=== PATIENT | male | born 2000 | race Caucasian/White ===

== ENCOUNTER 2024-01-11 20:25 | Emergency (ER) | payer BC, SELFPAY ==
[2024-01-11 20:28] VITALS: BP 147/81
--- NOTE | 2024-01-11 21:01 | ED.GENMED ---
History of Present Illness
General
Chief Complaint: Fever
Source: patient
Time Seen by Provider: 01/11/24 20:55
History of Present Illness
History of Present Illness:
23-year-old male with no significant past medical history who reports that on Monday he started to develop a low-grade fever combined with a rash on his left buttock combined with some fatigue. He went to urgent care 2 days ago who put the patient
on oral steroids and some Benadryl and he reports that the rash started to improve and has not had any fever since. Patient reports that he attempted to go back to work however his work told him that he would be unable to come back to work until he
knew exactly what caused his fever which is why he presented to the ER today. Patient has no concerns and states he otherwise feels well and that his rash is improving albeit still present. He denies any pain to the rash, pruritus, tick bites,
history of similar rash.
Past History
Past History
ED Past Medical History: None
ED Past Surgical History: None
Social History
Tobacco: Non-smoker
Alcohol: None
Drug: None
Living: with family
Employment: Employed
Review of Systems
Review of Systems
All Other Systems: ROS reviewed and negative except as documented in HPI and ROS
Phy Exam
Physical Exam
Physical Exam:
GENERAL: Alert , in no apparent distress
EYE: conjunctiva clear
NECK: Supple
ENT: o/p clr, mmm.
CARDIAC: Regular rate and rhythm
LUNGS: Clear breath sounds bilaterally, no acute respiratory distress, no wheezes/rales/rhonchi
Abdomen: Soft, nontender, nondistended
NEUROLOGICAL: Alert and oriented
SKIN: Warm and dry, skin intact. Very light erythematous well-demarcated rash measuring approximately 8 cm in size to the left buttock extending a little bit laterally, blanching, nontender, nonpruritic, nonraised
MUSCULOSKELETAL: well perfused.
PSYCH: Normal and appropriate interaction.
Scores
Heart Failure Risk
Heart Failure Risk Score: Not Applicable
Heart Score for Chest Pain Patients
STEMI patient?: Not applicable
Withdrawal Assessment of Alcohol
Withdrawal Assessment Completed?: Not applicable
Course
Vital Signs
Initial and Last Documented VS:
Initial Vital Signs
Temp Pulse Resp BP Pulse Ox
98.1 F 95 18 147/81 98
01/11/24 20:28 01/11/24 20:28 01/11/24 20:28 01/11/24 20:28 01/11/24 20:28
Last Documented Vital Signs
Temp Pulse Resp BP Pulse Ox
98.1 F 95 18 147/81 98
01/11/24 20:28 01/11/24 20:28 01/11/24 20:28 01/11/24 20:28 01/11/24 20:28
MDM/Problems Addressed
Differential Diagnosis Includes:
Viral syndrome, contact dermatitis, Lyme's rash however this is much less likely as this was not a classic bull's-eye rash
MDM/Problems Addressed:
23-year-old male presenting to the ER for viral-like symptoms that have now been fully resolved for over 48 hours, still has a slight rash but notes significant improvement following the steroids and Benadryl. Overall I am not suspicious for any
acute emergent pathology and patient notes that the only reason is here is because work would not let him come back to work until he knew what the rash was. I told the patient that we would be unlikely to figure out the exact diagnosis but if he is
having improvement with medications that I would continue this. We discussed return precautions to the ER but he is otherwise stable for discharge home.
*Pulse Oximetry
Patient hypoxic: no
*Critical Care Note
Total Time (30-74mins, 75-104mins- exclusive of procedures): Not Applicable
ED Attending Note
-
Portions of this chart may have been created with voice recognition software.� Occasional wrong word or��sound alike� substitutions may have occurred due to the inherent limitations of voice recognition software.
Discharge Plan
Departure
Patient Disposition: Home (Routine Discharge)
Date of Disposition: 01/11/24
Time of Disposition: 21:01
Patient with high blood pressure during this ER visit?: Yes
Discharge Problem:
Rash and nonspecific skin eruption
Instructions: Fever, Adult (DC)
Stand Alone Forms: Return to Work
Interventions
Interventions:
*Risk Screen - Suicide Last Done: 01/11/24 20:28
*General Assessment Last Done: 01/11/24 20:28
*Neglect/Abuse Screening Last Done: 01/11/24 20:28
Discharge Date and Time
Print Language: KOREAN
== END 2024-01-11 21:31 | disposition home or self-care (01) ==
LOC: EMR 20:25
PROVIDERS: EMERGENCY PHYSICIAN Emergency Medicine
DX: R21 Rash and other nonspecific skin eruption (principal)
CPT/HCPCS: 99282